=== PATIENT | female | born 1995 | race African-American/Black ===

== ENCOUNTER 2017-09-06 13:09 | Emergency (ER) | payer OTHER ==
[~2017-09-06] VITALS: Ht 154.9 cm; Wt 81.8 kg
[2017-09-06 13:11] VITALS: BP 137/83; PULSE 76; RESP 16; TEMP 98.8; O2SAT 97
[2017-09-06] MEDS ORDERED: ROBA750T PO (13:59)
[2017-09-06] MEDS ORDERED: IBUP-232 PO (13:59)
[2017-09-06] MEDS ORDERED: IBUPROFEN 600 MG TAB PO ONE (14:00)
[2017-09-06] MEDS ORDERED: CYCLOBENZAPRINE HCL 10 MG TAB PO ONE (14:00)
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
== END 2017-09-06 14:16 | disposition home or self-care (01) ==
LOC: NEPK 13:09
DX: S46.911A Strain of unspecified muscle, fascia and tendon at shoulder and upper arm level, right arm, initial encounter (principal); G44.209 Tension-type headache, unspecified, not intractable; V43.52XA Car driver injured in collision with other type car in traffic accident, initial encounter
CPT/HCPCS: 99283